=== PATIENT | female | born 1955 ===

== ENCOUNTER 2025-05-01 13:17 | Outpatient (CLI) | payer MEDICARE, OTHER | END 2025-05-01 17:00 | disposition home or self-care (01) | LOC: Rad HDHVI 13:17 | PROVIDERS: ATTEND Internal Medicine Cardiovascular Disease | DX: T82.855A Stenosis of coronary artery stent, initial encounter (principal); I31.39 Other pericardial effusion (noninflammatory); X58.XXXA Exposure to other specified factors, initial encounter; Y93.89 Activity, other specified; Y92.89 Other specified places as the place of occurrence of the external cause; Y99.8 Other external cause status | CPT/HCPCS: 93306 ==

== ENCOUNTER 2025-05-08 09:27 | Outpatient (CLI) | payer MEDICARE, OTHER ==
[~2025-05-08] VITALS: Ht 149.9 cm; Wt 35.8 kg
[2025-05-08] MEDS ORDERED: GIVE UN DILUTED IV ONE (10:15)
[2025-05-08] MEDS ORDERED: ADENOSINE IV ONE (10:15)
[2025-05-08] MEDS ORDERED: ADENOSINE 90 MG/30 ML INJ IV ONE (10:19)
== END 2025-05-08 17:00 | disposition home or self-care (01) ==
LOC: Rad HDHVI 09:27
PROVIDERS: ATTEND Internal Medicine Cardiovascular Disease
DX: I49.1 Atrial premature depolarization (principal); R00.0 Tachycardia, unspecified; I10 Essential (primary) hypertension; I25.10 Atherosclerotic heart disease of native coronary artery without angina pectoris; I25.2 Old myocardial infarction; R07.89 Other chest pain; R94.31 Abnormal electrocardiogram [ECG] [EKG]; F17.210 Nicotine dependence, cigarettes, uncomplicated; Z88.0 Allergy status to penicillin; Z82.49 Family history of ischemic heart disease and other diseases of the circulatory system
CPT/HCPCS: 78452; 93017; A9500; J0153